=== PATIENT | female | born 1950 | race Caucasian/White ===

== ENCOUNTER 2016-10-17 07:57 | Inpatient (IN) | payer MEDICARE, BC ==
[~2016-10-17] VITALS: Ht 160 cm; Wt 120.9 kg
[2016-10-17] MEDS ORDERED: TRAM50TA PO (08:30)
[2016-10-17] MEDS ORDERED: LISI10TA3 PO (11:20)
[2016-10-17] MEDS ORDERED: AMLO10TA2 PO (11:20)
[2016-10-25] MEDS ORDERED: EXPAREL PERI-ARTICULAR INJECTION (TOTAL VOL. 100 ML) P-ARTICULR SCH ×2 (05:30)
[2016-10-25 05:42] VITALS: BP 137/67; PULSE 81; RESP 20; TEMP 98.1; O2SAT 99
[2016-10-25] MEDS ORDERED: INSULIN HUMAN REGULAR 1,000 UNITS/10 ML VIAL SQ PRN (05:45)
[2016-10-25] MEDS ORDERED: SODIUM CHLORID 0.9% 500 ML IV SCH (05:45)
[2016-10-25] MEDS ORDERED: METOPROLOL TARTRATE 25 MG TAB PO PRN (05:45)
[2016-10-25] MEDS ORDERED: CHLORHEXIDINE GLUCONATE 2 % 1 PACK (2 CLOTHS) TOP ONE (05:45)
[2016-10-25] MEDS ORDERED: LACTATED RINGER'S 1000 ML IV SCH (05:45)
[2016-10-25] MEDS: POVIDONE IODINE 5% (ANTISEPSIS KIT) 4 APPLICATIONS EACH NARE SCH (05:49)
[2016-10-25] MEDS ORDERED: MIDAZOLAM HCL 2 MG/2 ML VIAL ONE (06:05)
[2016-10-25] MEDS ORDERED: GENTAMICIN SULFATE 80 MG/2 ML VIAL ONE (06:09)
[2016-10-25] MEDS ORDERED: ceFAZolin 2 GM PREMIX 50 ML ONE (06:31)
[2016-10-25] MEDS ORDERED: ACETAMINOPHEN 1000 MG/100 ML VIAL IV ONE (06:44)
[2016-10-25] MEDS ORDERED: DEXAMETHASONE SOD PHOS 4 MG/ML VIAL ONE (06:45)
[2016-10-25] MEDS ORDERED: fentaNYL CITRATE 250 MCG/5 ML AMP ONE (06:45)
[2016-10-25] MEDS ORDERED: FAMOTIDINE 20 MG/2 ML VIAL ONE (06:45)
[2016-10-25] MEDS ORDERED: LACTATED RINGER'S 1000 ML INJ 1,000 ML IV SCH (06:54)
[2016-10-25] MEDS ORDERED: CHLORHEXIDINE GLUCONATE 4% SOLN 120 ML BTL TOP SCH (07:00)
[2016-10-25] MEDS ORDERED: TRANEXAMIC ACID INJ 0 MG in SODIUM CHLORIDE 0.9% INJ 100 ML IV SCH (07:00)
[2016-10-25] MEDS ORDERED: SODIUM CHLORIDE 0.9% FLUSH 5 ML FLUSH IVF PRN (07:00)
[2016-10-25] MEDS ORDERED: MAGNESIUM HYDROXIDE SUSP 30 ML CUP PO PRN (07:00)
[2016-10-25] MEDS ORDERED: MORPHINE SULFATE 4 MG/ML INJ IV PUSH PRN (07:00)
[2016-10-25] MEDS ORDERED: TRANEXAMIC ACID IV SCH ×2 (07:00→10:00)
[2016-10-25] MEDS ORDERED: ONDANSETRON HCL 4 MG/2 ML VIAL IVP PRN (07:00)
[2016-10-25] MEDS ORDERED: Post-op Orders (for Pharmacy) MISC XX ONE (07:00)
[2016-10-25] MEDS ORDERED: POVIDONE IODINE 7.5% SCRUB 118 ML BOTTLE TOP SCH (07:00)
[2016-10-25] MEDS: KETOROLAC TROMETHAMINE 30 MG/ML (IVP) VIAL IVP SCH ×3 (07:00→19:05)
[2016-10-25] MEDS ORDERED: SODIUM CHLORIDE 0.9% IV SCH ×2 (07:00→10:00)
[2016-10-25] MEDS ORDERED: ceFAZolin 2 GM PREMIX 50 ML IV SCH (07:00)
[2016-10-25] MEDS ORDERED: ZOLPIDEM TARTRATE 5 MG TAB PO PRN (07:00)
[2016-10-25] MEDS: SODIUM CHLORIDE 0.9% FLUSH 5 ML FLUSH IVF SCH ×2 (09:00→20:04)
[2016-10-25] MEDS ORDERED: ASPIRIN EC 81 MG TABEC PO SCH (09:00)
[2016-10-25] MEDS ORDERED: DO NOT ADM ANY ANTICOAGULANT DRUGS XX PRN (09:30)
[2016-10-25] MEDS ORDERED: *morphine SULFATE 8 MG/ML PERIprocedure ONLY ONE ×2 (09:41→09:47)
[2016-10-25] MEDS ORDERED: *HYDROmorphone PF 1 MG VIAL PERIprocedural Use ONLY ONE ×3 (09:54→10:16)
[2016-10-25] MEDS ORDERED: *hydrOXYzine 25 MG VIAL PERIprocedural Use ONLY IM ONE (10:10)
[2016-10-25] MEDS ORDERED: BUPIVACAINE LIPOSOME PF 1.3% 20 ML VIAL ONE (11:02)
--- NOTE | 2016-10-25 11:02 | RADRPT ---
EXAM DATE/TIME: 10/25/2016 09:56 [place] COMPARISON: No previous studies available for comparison. INDICATIONS: Post op left knee surgery. MEDICAL HISTORY: None. SURGICAL HISTORY: None. ENCOUNTER: Initial ACUITY: 1 day PAIN SCORE: Non-responsive. LOCATION: Left knee FINDINGS: Patient is status post left total knee arthroplasty. There is no acute fracture or dislocation. No knee joint effusion is noted. CONCLUSION: 1. Status post left total knee arthroplasty with prosthesis in good position. 2. No acute fracture or dislocation. Jose Watters MD on October 25, 2016 at 10:33 Board Certified Radiologist. This report was verified electronically.
[2016-10-25] MEDS ORDERED: BUPIVACAINE HCL PF 0.5% 30 ML VIAL NB ONE (11:05)
--- NOTE | 2016-10-25 11:52 | PD.CONS ---
[facility] By [facility] surgery Reason for Consult Medical management Primary Care Physician Isael Smiley MD Diagnoses: History of Present Illness 6 is 6-year-old female with a history of hypertension, severe left knee osteoarthritis who despite medical management continued to have worsening left knee pain affecting her daily living of activity underwent left total knee arthroplasty today 10/25/16. Postoperatively, she denies any chest pain or shortness of breath. Review of Systems Other 12 system reviewed and are negative except for the one mentioned in history of present illness Past Family Social History Allergies: Coded Allergies: No Known Allergies (Unverified , 10/25/16) Past Medical History Hypertension Left severe osteoarthritis of knee Past Surgical History Left total knee arthroplasty Reported Medications Lisinopril Norvasc Family History Noncontributory Social History Patient denies tobacco, alcohol or illicit drug intake Physical Exam Vital Signs Vital Signs Date Time Temp Pulse Resp B/P Pulse Ox O2 Delivery O2 Flow Rate FiO2 10/25/16 09:37 97.6 74 17 119/74 94 Nasal Cannula 2 10/25/16 06:00 99 Nasal Cannula 3 10/25/16 05:42 98.1 81 20 137/67 99 Physical Exam GENERAL: This is a well-nourished, well-developed patient, in no apparent distress. SKIN: No rashes, ecchymoses or lesions. Cool and dry. HEAD: Atraumatic. Normocephalic. No temporal or scalp tenderness. EYES: Pupils equal round and reactive. Extraocular motions intact. No scleral icterus. No injection or drainage. ENT: Nose without bleeding, purulent drainage or septal hematoma. Throat without erythema, tonsillar hypertrophy or exudate. Uvula midline. Airway patent. NECK: Trachea midline. No JVD or lymphadenopathy. Supple, nontender, no meningeal signs. CARDIOVASCULAR: Regular rate and rhythm without murmurs, gallops, or rubs. RESPIRATORY: Clear to auscultation. Breath sounds equal bilaterally. No wheezes , rales, or rhonchi. GASTROINTESTINAL: Abdomen soft, non-tender, nondistended. No hepato-splenomegaly , or palpable masses. No guarding. MUSCULOSKELETAL: Extremities without clubbing, cyanosis, or edema. Left knee repair-neurovascular intact NEUROLOGICAL: Awake and alert. Cranial nerves II through XII intact. Motor and sensory grossly within normal limits. Five out of 5 muscle strength in all muscle groups. Normal speech. Laboratory Laboratory Tests Test 10/25/16 05:47 Blood Type A POSITIVE Antibody Screen NEGATIVE Blood Bank Comment Imaging Last Impressions Knee X-Ray 10/25/16 0000 Signed Impressions: Service Date/Time: Tuesday, October 25, 2016 09:56 - CONCLUSION: 1. Status post left total knee arthroplasty with prosthesis in good position. 2. No acute fracture or dislocation. Jose Watters MD Assessment and Plan Problem List: (1) Primary osteoarthritis of left knee ICD Code: M17.12 Status: Acute Assessment and Plan 66-year-old female with 1-Primary osteoarthritis left knee: Status post left total knee arthroplasty, and management per orthopedic surgery. Continue current postop care. Aspirin 81 mg by mouth twice a day for DVT prophylaxis. PT consult to treat and eval. 2-Hypertension: Currently on Norvasc 10 mg and lisinopril 10 mg daily, Vasotec when necessary. BMP in a.m. 3-DVT prophylaxis: Aspirin 81 mg by mouth twice a day Thank you for this consultation Code Status Full code Discussed Condition With Patient Merritt Lai MD Oct 25, 2016 11:52
[2016-10-25] MEDS ORDERED: RESP: ALBUTEROL 2.5 MG/IPRATROPIUM 0.5 MG NEB (PRN) NEB (12:00)
[2016-10-25 12:52] VITALS: BP 124/64; PULSE 68; RESP 17; TEMP 95.9; O2SAT 100
[2016-10-25] MEDS ORDERED: ePHEDrine/NS 25 MG/5 ML SYR IV ONE (14:14)
[2016-10-25] MEDS ORDERED: PROPOFOL 200 MG/20 ML AMP IV ONE (14:14)
[2016-10-25] MEDS ORDERED: LACTATED RINGER'S 1000 ML INJ 1,000 ML IV ONE (14:14)
[2016-10-25] MEDS ORDERED: PHENYLEPH/NS 1000 MCG/10 ML SYR IV ONE (14:14)
[2016-10-25] MEDS ORDERED: ONDANSETRON HCL 4 MG/2 ML VIAL IV PUSH ONE (14:14)
[2016-10-25 15:53] VITALS: BP 125/62; PULSE 70; RESP 19; TEMP 95.7; O2SAT 100
[2016-10-25] MEDS: ACETAMINOPHEN/HYDROcodone 325 MG/7.5 MG TAB PO PRN ×2 (16:07→20:46)
[2016-10-25 17:02] VITALS: O2SAT 98
[2016-10-25 19:30] VITALS: O2SAT 99
[2016-10-25 20:10] VITALS: BP 123/58; PULSE 76; RESP 17; TEMP 97.3; O2SAT 100
[2016-10-26] VITALS (7 sets, daily range): BP systolic 116–140; BP diastolic 57–72; PULSE 76–86; RESP 16–18; TEMP 96.6–99.1; O2SAT 94–100
[2016-10-26] MEDS: KETOROLAC TROMETHAMINE 30 MG/ML (IVP) VIAL IVP SCH ×5 (01:48→23:04)
[2016-10-26] MEDS: POVIDONE IODINE 5% (ANTISEPSIS KIT) 4 APPLICATIONS EACH NARE SCH (05:45)
[2016-10-26 06:25] LABS: HEMATOCRIT 31.9 % (35.0-46.0); REVIEW FLAG FINAL
[2016-10-26 06:48] LABS: BICARBONATE 24.6 MEQ/L (21.0-32.0); POTASSIUM 3.9 MEQ/L (3.5-5.1)
--- NOTE | 2016-10-26 07:17 | PD.ORT.PN ---
Subjective Post Op Day #: 1 Subjective Remarks After the second block, she did well. She has been OOB walking to the bathroom several times. Range of Motion -20 to 80 degrees. Distance Walked 10 feet. Objective Vitals Vital Signs Date Time Temp Pulse Resp B/P Pulse Ox O2 Delivery O2 Flow Rate FiO2 10/26/16 00:15 96.6 76 17 140/68 100 10/25/16 21:46 18 10/25/16 20:10 97.3 76 17 123/58 100 10/25/16 19:30 99 Nasal Cannula 3.00 10/25/16 17:02 98 Nasal Cannula 2.00 10/25/16 15:53 95.7 70 19 125/62 100 10/25/16 14:24 18 10/25/16 12:52 95.9 68 17 124/64 100 10/25/16 12:00 97.6 74 12 124/63 96 Nasal Cannula 2 10/25/16 11:45 70 12 126/68 97 Nasal Cannula 2 10/25/16 11:30 73 12 122/67 96 Nasal Cannula 2 10/25/16 11:15 66 12 125/69 95 Nasal Cannula 2 10/25/16 11:00 66 12 137/69 93 Nasal Cannula 2 10/25/16 10:45 88 15 151/77 98 Nasal Cannula 2 10/25/16 10:30 77 20 161/91 99 Nasal Cannula 2 10/25/16 10:15 68 22 145/84 99 Nasal Cannula 2 10/25/16 10:00 77 20 138/78 98 Nasal Cannula 2 10/25/16 09:45 88 20 133/69 97 Nasal Cannula 2 10/25/16 09:37 97.6 74 17 119/74 94 Nasal Cannula 2 I/O 10/25/16 10/25/16 10/25/16 10/26/16 10/26/16 10/26/16 07:00 15:00 23:00 07:00 15:00 23:00 Intake Total 1840 ml 720 ml Output Total 380 ml 150 ml 130 ml Balance 1460 ml 570 ml -130 ml Intake Oral 240 ml 720 ml IV Total 100 ml Other 1500 ml Output Drainage Total 130 ml 150 ml 130 ml Estimated Blood Loss 250 ml # Voids 1 2 # Bowel Movements 0 0 Result Diagram: 10/26/16 0546 10/26/16 0546 Imaging Last 72 hours Impressions Knee X-Ray 10/25/16 0000 Signed Impressions: Service Date/Time: Tuesday, October 25, 2016 09:56 - CONCLUSION: 1. Status post left total knee arthroplasty with prosthesis in good position. 2. No acute fracture or dislocation. Jose Watters MD Objective Remarks She is resting comfortably, supine in bed in the CPM. The neurovascular status is intact. The dressing is dry and intact. Assessment & Plan Ortho Post Op Day #: 1 Problem List: (1) Primary osteoarthritis of left knee Plan: Continue postop care and PT. Assessment and Plan Condition: Good. Orthopaedically stable. DVT prophylaxis: TEDs, sequentials, ASA. Discharge plans: Home with [facility]. Has appointment. Rx: [place] 7.5/325 Yady Ruby MD (Charles) Oct 26, 2016 07:17
[2016-10-26] MEDS ORDERED: ASPI81TA11 PO (08:22)
[2016-10-26] MEDS ORDERED: HYDR-3580 PO (08:22)
--- NOTE | 2016-10-26 08:29 | HHI.FF ---
Face to Face Verification Diagnosis: (1) Status post total left knee replacement Physical Therapy Gait training Knee: Total knee, Protocol: Left, Gait training, Full weight bearing Left LE Weight Bearing: WB as tolerated Left LE Range of Motion: Active ROM (AROM, AAROM, PROM, PRE. ROM goal is 0 to 135 degrees.) Nursing Nursing: Dressing changes Dressing Changes: Daily dressing change, Coverderm/Primapore Additional Instructions Remove steristrips on postop day 14. I have seen patient Michelle Muñoz on 10/26/16. My clinical findings support the need for the requested home health care services because: Ltd mobility - disease progression Limited ability to care for self High risk of falls I certify that my clinical findings support that this patient is homebound because: Post-op weakness Unsteady gait/balance Unsafe to leave home unassisted Yady Ruby MD (Charles) Oct 26, 2016 08:29
[2016-10-26] MEDS: ASPIRIN EC 81 MG TABEC PO SCH ×2 (09:04→19:45)
[2016-10-26] MEDS: LISINOPRIL 10 MG TAB PO SCH (09:04)
[2016-10-26] MEDS: ACETAMINOPHEN/HYDROcodone 325 MG/7.5 MG TAB PO PRN ×3 (09:05→18:53)
--- NOTE | 2016-10-26 09:06 | MP ---
cc: Cristobal KAYE. DATE OF SURGERY 10/25/2016 PREOPERATIVE DIAGNOSIS Primary osteoarthritis left knee POSTOPERATIVE DIAGNOSIS Primary osteoarthritis left knee OPERATION PERFORMED Left total knee arthroplasty with Beeler Triathlon prosthesis (uncemented). SURGEON Ha Kaye MD [employer] Will Alanis CSFA ANESTHESIA Spinal with adductor canal block and local. INDICATIONS AT FINDINGS This 66-year-old woman has several months of the left knee pain that has progressed to the point that she can barely walk around the block because of the pain. She has had pain on motion. She has occasional locking. She has difficulty standing from a seated position. She has difficulty walking more than around the home. She has not responded to anti-inflammatory agents, analgesics, activity modification, exercises, ambulatory aids, or physical therapy. Physical findings showed some mild medial laxity with crepitation on range of motion throughout the entire joint. Imaging studies including x-rays and MRI showed significant degenerative change with loss of articular cartilage to the subchondral bone with subchondral sclerosis in the patellofemoral joint especially but also in the medial compartment and to a lesser extent the lateral compartment. There was also significant meniscal pathology. Operative findings showed grade 4 change in the patellofemoral joint, grade 3-4 change in the medial compartment and grade 3 change in the lateral compartment. There are osteophytes and subchondral sclerosis. PROSTHESIS USED Beeler Triathlon prosthesis with the femur being a Triathlon cruciate-retaining femoral component size 5 left uncemented, the tibia baseplate being a tritanium baseplate with a size 5 and the spacer being 9-mm, size 5 cruciate-retaining of X3 polyethylene. The patella was a titanium-backed asymmetric patella size 35-mm. PROCEDURE The patient had an adductor canal block carried out preoperatively. She was then brought to the clean-air operating suite where spinal anesthetic was administered. She was placed in a supine position on the operating table with a bolster under the left hip. A pneumatic tourniquet was applied to the left thigh. The limb was then prepped with alcohol, Hibiclens and Chloraprep and draped in the usual manner with the knee draped free. An appropriate time-out procedure was carried out. Local anesthesia was administered in the incision site prior to making it. The incision was then made from three fingerbreadths above the superior medial pole of the patella down to the tibial tubercle on the medial side. The incision was deepened through the subcutaneous tissues to the retinacular structures which were exposed medially and laterally. A medial retinacular incision was then made from the superior medial pole of patella down to the tibial tubercle up to the quadriceps tendon splitting it longitudinally in the medial one-third. The patella was reflected. The infrapatellar fat pad was debulked. Medial and lateral dissection was carried out. Medial and lateral meniscus meniscectomies were initiated. The anterior cruciate ligament was excised. The posterior surface of the patella was then excised using the oscillating saw taking care to prevent injury to tendinous structures. A patella protector was applied. The patella was dropped into the lateral gutter. A suprapatellar plica was excised. Whitesides line was marked on the distal femur. Fenestrations were made in the distal femur and proximal tibia with the appropriate drill for intramedullary referencing guides. The distal femoral cutting guide and jig were assembled for a 5-degree, 8-mm cut. The cutting block was stabilized with pins. The jig was removed. The distal femoral cut was completed with the oscillating saw. The sizing guide was positioned along Whitesides line. This was stabilized with pins. The size was determined to be size and size 5. The four-in-one cutting block was then positioned in place. Anterior and posterior cuts were made followed by posterior and anterior chamfer cuts. Osteophytes were trimmed. Medial and lateral meniscectomies were completed. The tibial preparation was initiated with the intramedullary guide. The guide was stabilized for rotation. The depth of cut was verified with the stylus. The spacer block was used to adjust this. With the tibial guide stabilized with pins, the proximal tibial cut was completed with the oscillating saw. The spacer block was inserted. Following this, local anesthesia was administered throughout the knee with Exparel. The osteophytes were trimmed from the posterior aspect of the femur. With the trial implants in place, it appeared to need another 2 mm of resection. The cutting block was then repositioned in place and an additional 2-mm were resected. The thickness of the prosthesis appeared to be appropriate. With the trial prosthesis in for the tibia and the femur, the patella drill holes were made. Patella trial was placed. A lateral retinacular release was done to achieve better stability of the patella. After pinning the tibia into proper position, the knee was taken through a range of motion which was easily 0 degrees extension to 135 degrees of flexion. The femoral drill holes were made. The patella trial and femoral trial were removed. The tibial spacer was removed. The tibial punch was impacted through its guide. The tibial baseplate was removed. The tibial drill guide was then used to make the drill holes. The cut ends of bone were then cleaned with pulse lavage. The tibial component was then impacted into place and seated appropriately. The 9-mm spacer was then inserted and impacted into place. The femoral component was then impacted into place after cleaning the debris from the end of the femur. The same was done with the patella using the patella vice. After the implants were in, the remainder of the Exparel was injected throughout the knee. Wound closure then commenced after placement of drains, exiting out the superolateral aspect of the suprapatellar pouch. The fascial and retinacular structures were closed with 0 Vicryl interrupted [id number] sutures. The subcutaneous tissues were closed with 2-0 Vicryl interrupted simple sutures with buried knots. The skin was closed with continuous subcuticular closure of 4-0 Monocryl. The wounds were then dressed with Steri-Strips, followed by dry dressing, sterile Sof-Rol, cooling pad, further sterile Sof-Rol and Anselmo bandage from the base the toe to the midthigh. The patient was transferred from the operating room to the recovery room in satisfactory condition having tolerated the procedure well. COUNTS Correct. SPECIMENS None. ESTIMATED BLOOD LOSS 250 mL. MD LORI Rey/GLENNA /9:37 AM /8:43 AM
[2016-10-26] MEDS: SODIUM CHLORIDE 0.9% FLUSH 5 ML FLUSH IVF SCH ×2 (09:08→19:45)
--- NOTE | 2016-10-26 11:16 | HHI.PR ---
Subjective History of Present Illness i am ok knee pain is in control worked w PT No N/V good appetite Moved bowel today no cp or SOB ] In good spirits offers no other c/o Vitals/Results Intake & Output 10/25/16 10/25/16 10/26/16 15:00 23:00 07:00 Intake Total 1840 ml 720 ml Output Total 380 ml 150 ml 130 ml Balance 1460 ml 570 ml -130 ml Intake Oral 240 ml 720 ml IV Total 100 ml Other 1500 ml Output Drainage Total 130 ml 150 ml 130 ml Estimated Blood Loss 250 ml # Voids 1 2 # Bowel Movements 0 0 Vital Signs Vital Signs Date Time Temp Pulse Resp B/P Pulse Ox O2 Delivery O2 Flow Rate FiO2 10/26/16 09:30 97 21 10/26/16 08:00 98.4 86 18 131/72 96 10/26/16 04:25 97.9 84 16 131/63 99 10/26/16 00:15 96.6 76 17 140/68 100 10/25/16 21:46 18 10/25/16 20:10 97.3 76 17 123/58 100 10/25/16 19:30 99 Nasal Cannula 3.00 10/25/16 17:02 98 Nasal Cannula 2.00 10/25/16 15:53 95.7 70 19 125/62 100 10/25/16 14:24 18 10/25/16 12:52 95.9 68 17 124/64 100 10/25/16 12:00 97.6 74 12 124/63 96 Nasal Cannula 2 10/25/16 11:45 70 12 126/68 97 Nasal Cannula 2 10/25/16 11:30 73 12 122/67 96 Nasal Cannula 2 CBC/BMP: 10/26/16 0546 10/26/16 0546 Lab Results Laboratory Tests Test 10/26/16 05:46 Hemoglobin 11.0 GM/DL Hematocrit 31.9 % Sodium Level 140 MEQ/L Potassium Level 3.9 MEQ/L Chloride Level 106 MEQ/L Carbon Dioxide Level 24.6 MEQ/L Anion Gap 9 MEQ/L Blood Urea Nitrogen 8 MG/DL Creatinine 0.68 MG/DL Estimat Glomerular Filtration 86 ML/MIN Rate Random Glucose 102 MG/DL Calcium Level 8.9 MG/DL Physical Exam General General Appearance: No Acute Distress, Comfortable Eyes Eye Exam: Pupils Equal, Sclera White Throat Throat Exam: Oral Mucosa [place] & Moist Neck Neck Exam: Neck Supple, Trachea Midline Pulmonary Resp Exam: Clear Bilaterally, Breath Sounds Equal Cardiology CV Exam: Regular, Normal Sinus Rhythm Gastrointestinal/Abdomen GI Exam: Soft, Non-Tender, Bowel Sounds Present Musculoskeletal MS Remarks left Knee dressing intact Integumentary Skin Exam: Warm, Dry Extremeties Extremities Exam: No Edema, Pedal Pulses Palpable Neurologic Neuro Exam: Alert, Awake, Oriented, Speech Clear, Moving All Extremities Psychiatric Psych Exam: Appropriate Responses Assessment/Plan Problem List: (1) Primary osteoarthritis of left knee Assessment/Plan OA s/p L TKR HTN Obesity PLAN Post op care per ortho s/p Abx prophylaxis analgesic wound care DVT prophylaxis per ortho daily PT CPM BP control , CCB/JEVON-I pepcid stool softener/prn laxative ss for d/c planning will f/u Joe Bustos MD Oct 26, 2016 11:16
[2016-10-26] MEDS: DOCUSATE SODIUM 100 MG CAP PO SCH (19:45)
[2016-10-27 00:21] VITALS: BP 116/56; PULSE 70; RESP 17; TEMP 97.8; O2SAT 95
[2016-10-27 04:19] VITALS: BP 146/65; PULSE 86; RESP 17; TEMP 99.8; O2SAT 97
[2016-10-27] MEDS: ACETAMINOPHEN/HYDROcodone 325 MG/7.5 MG TAB PO PRN ×2 (05:32→09:34)
[2016-10-27 06:05] LABS: HEMATOCRIT 30.1 % (35.0-46.0); REVIEW FLAG FINAL
--- NOTE | 2016-10-27 06:36 | PD.ORT.PN ---
Subjective Post Op Day #: 2 Subjective Remarks She had a bad night, with pain. She did well with PT yesterday. She would like to go home today. Range of Motion -10 to 96 degrees. Distance Walked 150 feet. Objective Vitals Vital Signs Date Time Temp Pulse Resp B/P Pulse Ox O2 Delivery O2 Flow Rate FiO2 10/27/16 04:19 99.8 86 17 146/65 97 10/27/16 00:21 97.8 70 17 116/56 95 10/26/16 20:15 99.1 80 17 129/59 94 10/26/16 16:00 98.7 82 18 116/59 97 10/26/16 11:54 98.6 81 18 120/57 96 10/26/16 09:30 97 21 10/26/16 08:00 98.4 86 18 131/72 96 I/O 10/26/16 10/26/16 10/26/16 10/27/16 10/27/16 10/27/16 07:00 15:00 23:00 07:00 15:00 23:00 Intake Total 1700 ml 480 ml 240 ml Output Total 130 ml 120 ml 30 ml 10 ml Balance -130 ml 1580 ml 450 ml 230 ml Intake Oral 1700 ml 480 ml 240 ml Output Drainage Total 130 ml 120 ml 30 ml 10 ml # Voids 9 2 2 # Bowel Movements 1 0 Result Diagram: 10/27/16 0546 10/26/16 0546 Imaging Last 72 hours Impressions Knee X-Ray 10/25/16 0000 Signed Impressions: Service Date/Time: Tuesday, October 25, 2016 09:56 - CONCLUSION: 1. Status post left total knee arthroplasty with prosthesis in good position. 2. No acute fracture or dislocation. Jose Watters MD Objective Remarks She is resting comfortably, supine in bed in the CPM. The neurovascular status is intact. The original dressing is dry and intact. Assessment & Plan Ortho Post Op Day #: 2 Problem List: (1) Primary osteoarthritis of left knee Plan: Continue postop care and PT. Assessment and Plan Condition: Good. Orthopaedically stable. DVT prophylaxis: TEDs, sequentials, ASA. Discharge plans: Home with [facility]. Has appointment. Rx: [place] 7.5/325 Yady Ruby MD (Charles) Oct 27, 2016 06:36
[2016-10-27 08:00] VITALS: BP 139/65; PULSE 87; RESP 18; TEMP 98.4; O2SAT 94
[2016-10-27] MEDS ORDERED: FAMOTIDINE 20 MG TAB PO SCH (09:00)
[2016-10-27] MEDS: SODIUM CHLORIDE 0.9% FLUSH 5 ML FLUSH IVF SCH (09:00)
[2016-10-27] MEDS: DOCUSATE SODIUM 100 MG CAP PO SCH (09:33)
[2016-10-27] MEDS: ASPIRIN EC 81 MG TABEC PO SCH (09:34)
[2016-10-27] MEDS: LISINOPRIL 10 MG TAB PO SCH (09:34)
--- NOTE | 2016-10-27 10:31 | HHI.PR ---
Subjective Subjective Remarks ambulating in hallway with walker had BM no cp no sob no fever going home today Review of Systems Constitutional Constitutional Remarks 12 point ROS completed, negative except as noted above Vitals/Results Intake & Output 10/26/16 10/26/16 10/27/16 15:00 23:00 07:00 Intake Total 1700 ml 480 ml 240 ml Output Total 120 ml 30 ml 10 ml Balance 1580 ml 450 ml 230 ml Intake Oral 1700 ml 480 ml 240 ml Output Drainage Total 120 ml 30 ml 10 ml # Voids 9 2 2 # Bowel Movements 1 0 Vital Signs Vital Signs Date Time Temp Pulse Resp B/P Pulse Ox O2 Delivery O2 Flow Rate FiO2 10/27/16 08:00 98.4 87 18 139/65 94 10/27/16 04:19 99.8 86 17 146/65 97 10/27/16 00:21 97.8 70 17 116/56 95 10/26/16 20:15 99.1 80 17 129/59 94 10/26/16 16:00 98.7 82 18 116/59 97 10/26/16 11:54 98.6 81 18 120/57 96 CBC/BMP: 10/27/16 0546 10/26/16 0546 Lab Results Laboratory Tests Test 10/27/16 05:46 Hemoglobin 10.2 GM/DL Hematocrit 30.1 % Physical Exam General General Appearance: Well Developed, No Acute Distress, Comfortable, Obese Eyes Eye Exam: Pupils Equal, Pupils Reactive, Sclera White Ears & Nose Ears & Nose Exam: Nasal Mucosa Riva Throat Throat Exam: Oral Mucosa Riva & Moist Neck Neck Exam: Neck Supple, Trachea Midline Pulmonary Resp Exam: Clear Bilaterally, Breath Sounds Equal Cardiology CV Exam: Regular, Normal Sinus Rhythm Gastrointestinal/Abdomen GI Exam: Soft, Non-Tender, Bowel Sounds Present, Non-Distended Musculoskeletal MS Exam: Joints Intact MS Remarks left knee dressing D/I Integumentary Skin Exam: Warm, Dry Extremeties Extremities Exam: Pedal Pulses Palpable, Trace Edema Neurologic Neuro Exam: Alert, Awake, Oriented, Speech Clear, Moving All Extremities Psychiatric Psych Exam: Appropriate Responses VTE Prophylaxis VTE Prophylaxis Device: SCDs Assessment/Plan Problem List: (1) Primary osteoarthritis of left knee Assessment/Plan OA s/p L TKR HTN Obesity PLAN Post op care per ortho s/p Abx prophylaxis analgesic wound care DVT prophylaxis per ortho daily PT BP control , CCB/JEVON-I pepcid stool softener/prn laxative stable for dc dc per ortho D/W RN D/W Dr. Berumen D/W pt This patient was seen by myself and Dr. Bustos, this note is written on his behalf. Katty Mccoy Oct 27, 2016 10:31
[2016-10-27 11:30] VITALS: BP 136/62; PULSE 89; RESP 18; TEMP 97.3; O2SAT 97
== END 2016-10-27 11:56 | disposition home health service (06) | DRG 470 ==
LOC: HSDI 10-25 05:10 → N06B 10-25 12:42
PROVIDERS: ADMIT Orthopaedic Surgery; ATTEND Orthopaedic Surgery
PROC: 3E0T3CZ (ICD-10-PCS; 2016-10-25)
PROC: 0SRD0JA Replacement of Left Knee Joint with Synthetic Substitute, Uncemented, Open Approach (ICD-10-PCS; principal; 2016-10-25 06:47)
DX: M17.12 Unilateral primary osteoarthritis, left knee (principal); Z68.42 Body mass index [BMI] 45.0-49.9, adult; I10 Essential (primary) hypertension; E66.9 Obesity, unspecified; Z79.899 Other long term (current) drug therapy
CPT/HCPCS: 73560; 80048; 85014; 85018; 86850; 86900; 86901; 94150; C1776; C9290; J0131; J0690; J1100; J1170; J1580; J1885; J2250; J2270; J2370; J2405; J3010; J3410; J7120; L1830

== ENCOUNTER → 2016-10-17 | Outpatient (CLI) | payer MEDICARE, BC ==
[~2016-10-17] MED LIST: AMLO10TA2 PO; ASPI81TA11 PO; HYDR-3580 PO; LISI10TA3 PO; TRAM50TA PO
[2016-10-17 09:49] LABS: BLOOD, URINE NEG (NEG); COMMENT (UR) CATH-CULT NOT IND; CULTURE IF INDICATED CATH CULTURE NOT IND; GLUCOSE,URINE NEG (NEG); HYALINE CAST, URINE 7 /lpf (RARE); KETONE, URINE NEG (NEG); MUCUS URINE FEW /lpf (OCC); NITRITE,URINE NEG (NEG); PH, URINE 6.5 (5.0-8.5); SQUAMOUS EPITHELIAL CELL URINE 3 /hpf (0-5); URINE COLOR YELLOW (YELLW/STRAW)
[2016-10-17 10:03] LABS: MEAN CORPUSCULAR HEMOGLOBIN 33.1 PG (27.0-34.0); MEAN CORPUSCULAR HGB CONC 34.4 % (32.0-36.0); PLATELET COUNT 247 TH/MM3 (150-450); RED BLOOD COUNT 4.06 MIL/MM3 (4.00-5.30); RED CELL DISTRIBUTION WIDTH 13.3 % (11.6-17.2); REVIEW FLAG FINAL; WHITE BLOOD COUNT 7.7 TH/MM3 (4.0-11.0)
[2016-10-17 10:22] LABS: APTT (PATIENT) 27.3 SEC (24.3-30.1); PROTHROMBIN TIME - PATIENT 11.2 SEC (9.8-11.6)
[2016-10-17 10:31] LABS: BICARBONATE 27.5 MEQ/L (21.0-32.0); POTASSIUM 3.9 MEQ/L (3.5-5.1)
== END ==
LOC: CPRE 07:53
PROVIDERS: ATTEND Orthopaedic Surgery
DX: M17.12 Unilateral primary osteoarthritis, left knee (principal); M79.609 Pain in unspecified limb; I10 Essential (primary) hypertension
CPT/HCPCS: 36415; 80048; 81001; 85027; 85610; 85730

== ENCOUNTER 2018-05-29 05:14 | Inpatient (IN) ==
[2018-05-29] MEDS ORDERED: Sodium Chlor 0.9% Inj 500 ML IV.CONT ONE (05:45)
[2018-05-29] MEDS ORDERED: Chlorhexidine Gluconate 2% 1 Pack (2 Cloths) TOPICAL ONE (05:45)
[2018-05-29] MEDS ORDERED: Metoprolol Tartrate 25 MG Tablet PO ONE (05:45)
[2018-05-29] MEDS ORDERED: SODIUM CHLOR 0.9% IV.SIG SCH ×2 (06:00→10:00)
[2018-05-29] MEDS ORDERED: Sodium Chlor 0.9% Inj 80 ML, Bupivacaine Liposo PF 1.3% Inj 20 ML P-ARTICULR SCH ×2 (06:00)
[2018-05-29] MEDS ORDERED: Chlorhexidine 4% Topical 120 APPLIC/120 ML Bottle TOPICAL SCH (06:00)
[2018-05-29] MEDS ORDERED: TRANEXAMIC ACID IV.SIG SCH ×2 (06:00→10:00)
[2018-05-29] MEDS ORDERED: Bupivacaine Liposomal PF 1.3% Inj 20 ML Vial ONE (06:17)
[2018-05-29] MEDS ORDERED: Sodium Chlor 0.9% Inj 50 ML ONE (06:20)
[2018-05-29] MEDS ORDERED: Famotidine PF Inj 20 MG/2 ML Vial ONE (06:21)
[2018-05-29] MEDS ORDERED: fentaNYL Citrate Inj 100 MCG/2 ML Ampul ONE ×3 (06:21→09:39)
[2018-05-29] MEDS ORDERED: Bupivacaine/Dextrose 0.75% Inj 2 ML Ampul ONE ×2 (06:21→06:49)
[2018-05-29] MEDS ORDERED: Propofol Inj 500 MG/50 ML Vial ONE (06:21)
[2018-05-29] MEDS ORDERED: Dexmedetomidine Inj 200 MCG/2 ML Vial ONE (06:21)
[2018-05-29] MEDS ORDERED: Phenylephrine/NS 1000 MCG/10ML Syringe IV.PUSH ONE (06:42)
[2018-05-29] MEDS ORDERED: Post-op Orders (for Pharmacy) OTHER STA (06:44)
[2018-05-29] MEDS ORDERED: Morphine Inj 4 MG/ML Vial IV.PUSH PRN (06:44)
[2018-05-29] MEDS ORDERED: Aluminum/Magnesium/Simethacone Susp 30 ML UDC PO PRN (06:44)
[2018-05-29] MEDS ORDERED: Tranexamic Acid Inj 0 MG in Sodium Chlor 0.9% Inj 100 ML IV.SIG ONE (06:44)
[2018-05-29] MEDS ORDERED: Acetaminophen 325 MG Tablet PO PRN (06:44)
[2018-05-29] MEDS ORDERED: Bisacodyl 10 MG Supp RECTAL PRN (06:44)
--- NOTE | 2018-05-29 06:50 | P.DCO ---
- Physical Therapy Physical Therapy: Gait training Knee: Total knee, Protocol: Right, Gait training, Full weight bearing Right Lower Extremity Weight Bearing: Weight bearing as tolerated Right Lower Extremity Range of Motion: Active ROM (AROM, AAROM, PROM. ROM goal is 0 degrees extension to 130 degrees of flexion.) - Nursing Nursing: Dressing changes (Begin on postop day 8.) Dressing changes: Daily dressing change, Coverderm/Primapore Additional instructions: Do not remove Dermabond Prineo (the tape on the wound). Begin dressing changes on postop day 8. - Certification Need for Home Health services: I have seen patient Michelle Muñoz on 05/29/18. My clinical findings support the need for the requested home health care services because: Need for Home Health Services: Limited ability to care for self, High risk of falls Homebound Certification: I certify that my clinical findings support that this patient is homebound because: Homebound Certification: Post-op weakness, Unsteady gait/balance, Unsafe to leave home unassisted
[2018-05-29] MEDS: ceFAZolin 2 GM Premix Inj 2 GM/50 ML PIGGYBACK IV.SIG SCH ×2 (06:51→19:19)
--- NOTE | 2018-05-29 09:18 | P.OP ---
- Preoperative Diagnosis (1) Primary osteoarthritis of right knee - Postoperative Diagnosis (1) Primary osteoarthritis of right knee Date of procedure: 05/29/18 Procedure: Right total knee arthroplasty using [place] Triathlon prosthesis (uncemented) Anesthesia: GETA, regional (Adductor canal block), local (Exparel), spinal Surgeon: Carroll Ruby MD Estimated blood loss (mL): 150 Tourniquet time (min): 0 Pathology: none sent Operation and Findings: Indications and Findings: This 67-year-old woman has had a 3 right knee pain for several months that has been progressively worsening over the past few months. She has limited ambulation tolerance to about 30 minutes. She has used analgesics, anti-inflammatory agents, activity modification, exercise and ambulatory aids without benefit. She has pain when standing from a seated position and vice versa. She has pain with stairs. Physical findings showed genu varum with crepitation on motion in the medial and patellofemoral compartments especially. X-rays show loss of articular cartilage to exposed subchondral bone in the medial compartment especially with medial, lateral and patellofemoral compartment meant osteophytes. Operative findings: There was loss of articular cartilage to expose subchondral bone with subchondral sclerosis in the medial compartment. There was also loss of articular cartilage in the patellofemoral compartment particularly in the apex. There are tricompartmental osteophytes. The prosthesis used was a [place] Triathlon prosthesis. The femur was a size 5 cruciate retaining uncemented. The tibial baseplate was a size 5 Tritanium with a 9 mm cruciate retaining X3 polyethylene spacer. The patella was a size 35 mm asymmetric Tritanium backed. The patient was brought to the clean-air operating suite after administration of a regional anesthetic by adductor canal block. A spinal anesthetic was administered. The position was supine with a small bolster under the hip on the operative side. A pneumatic tourniquet was applied to the upper thigh. The lower extremity was prepped with alcohol, Hibiclens and ChloraPrep and draped in the usual manner with the knee draped free. An appropriate timeout procedure was carried out. An incision was made from about 3 fingerbreadths above the superior medial pole of patella down the tibial tubercle on the medial side. The incision was deepened through the subcutaneous tissue to the retinacular structures which were exposed medially and laterally. A medial retinacular incision was made from the superior medial pole of patella down the tibial tubercle and up into the quadriceps tendon, splitting it longitudinally in the medial one third. The patella was reflected. The infrapatellar fat pad was debulked. The anterior cruciate ligament was excised. Medial and lateral meniscectomies were initiated. Fenestrations were made in the distal femur and proximal tibia for intramedullary referencing guides. The distal femoral cutting guide and jig were assembled for a 5, 8 mm cut. When this was fit into position,the cutting block was stabilized with pins. The jig was removed. The distal femoral cut was completed with the oscillating saw. The sizing guide was positioned in place along Whitesides line and the epicondylar axis and stabilized with pins. The femoral size was determined as noted above. The 4-in-1 cutting block was positioned in place. Anterior and posterior cuts were made followed by posterior and anterior chamfer cuts taking care to prevent injury to ligamentous structures. Osteophytes were trimmed from the distal femur. A bone plug was placed into the fenestration of the distal femur. The proximal tibia was exposed. The medial and lateral meniscectomies were completed. The proximal tibial cutting guide was positioned in place and stabilized with a pin for rotation. The depth of cut was verified with a stylus off the high side. The cutting block was stabilized with pins. The jig was removed. The depth of cut was verified and adjusted appropriately with the use of the spacer block. The proximal tibial cut was made with the oscillating saw taking care to prevent injury to neurovascular and ligamentous structures. Proximal tibial bone was removed. Local anesthetic was administered with Exparel in the posterior capsule. The tibial baseplate trial was positioned in place. After verifying the appropriate size, the base plate trial was positioned in place along with its spacer. The femoral component was impacted into place. The alignment was checked. The tibial baseplate was pinned in place on the tibia. Attention was directed to the patella. The patella drill guide was positioned in place for the appropriate sized patella. Patellar drilling was then carried out. The trial patella was positioned in place. The knee was taken through a range of motion which was easily 0 extension to 135 degrees of flexion. The patella trial was removed. The femoral drill holes were made. The femoral trials were removed. The tibial spacer was removed. A bone plug was placed into the proximal tibia. The tibial punch was impacted through the proximal tibial punch guide. This was all removed followed by placement of the tibial drill guide. The tibial drill holes were made. The guide was removed. The cut ends of bone were cleaned with pulse lavage. The tibial baseplate was impacted into place and seated appropriately. The spacer was inserted. The the femoral component was impacted into place and seated appropriately. The patella component was seated with the patellar vice and tightened appropriately. The knee was taken through a range of motion which was comparable to the previous range of motion with excellent stability in flexion and extension and appropriate patellofemoral tracking. The remainder of the Exparel was injected throughout the knee as a local anesthetic. Drains were brought out the superior lateral aspect of the suprapatellar pouch. Wound closure commenced using 0 Vicryl interrupted [id number] sutures for the capsular and fascial structures, 2-0 Vicryl interrupted simple sutures with buried knots for the subcutaneous tissues and 4-0 Monocryl, continuous subcuticular closure for the skin. The wound was dressed with Dermabond Prineo followed by a silver impregnated dressing. Sterile soft roll with a cooling pad and Anselmo bandage from the base of the toes to mid thigh were applied. Patient was transferred from the operating room to the recovery room in satisfactory condition having tolerated procedure well. Counts were correct. Specimens: None. Estimated blood loss: 150 mL
[2018-05-29] MEDS ORDERED: *morphine SULFATE 4 MG/ML PERIprocedure ONLY ONE ×2 (09:32→09:59)
[2018-05-29] MEDS ORDERED: Ketorolac Inj 30 MG/ML (IVP) Vial ONE (09:54)
[2018-05-29] MEDS ORDERED: *HYDROmorphone PF Inj 1 MG/ML Ampul PERIprocedural Use ONLY ONE (10:09)
--- NOTE | 2018-05-29 10:26 | XR ---
EXAM DATE: 05/29/2018 6:43 AM EDT AGE/SEX: 67 years / Female INDICATIONS: Post op right total knee replacement. CLINICAL DATA: This is the patient's initial encounter. Patient reports that signs and symptoms have been present for 1 day and indicates a pain score of 5/10. MEDICAL/SURGICAL HISTORY: None. None. COMPARISON: No prior exams available for comparison. FINDINGS: Total knee arthroplasty is in place. The femoral, tibial, and patellar components appear intact. Th ere are no signs of loosening or fracture. CONCLUSION: Intact total knee arthroplasty for technique. Electronically signed by: Pranay Stuart MD 05/29/2018 10:25 AM EDT
[2018-05-29] MEDS ORDERED: HYDROmorphone PF Inj 1 MG/ML Ampul ONE (10:27)
--- NOTE | 2018-05-29 12:14 | P.CON ---
History of Present Illness Consult date: 05/29/18 Requesting Physician: Carroll Ruby Reason for Consult: Medical Management. Primary Care Provider: Bryan Smiley MD Chief Complaint: Status post Knee arthroplasty. History of Present Illness: This is a pleasant 67 y/o Female with Hypertension,Severe Right knee OA who despite medical management continued to have worsening right knee pain affecting her daily living of activity underwent right total knee arthroplasty today 05/29/18. Stable her only complaint is knee pain post surgery. Seen in PACU. Review of Systems All other systems reviewed negative except as stated in HPI PMFSH - History History Provided By: Patient - Medical History Medical History: Medical History (Last Reviewed 05/29/18 @ 05:49 by Alicia Tan) Arthritis - Surgical History Surgical History: Surgical History (Last Reviewed 05/29/18 @ 05:49 by Alicia Tan) History of total left knee replacement (TKR) - Family History Family History: Family History (Last Updated 05/29/18 @ 14:37 by Nicholas Moran MD) Other Family history normal - Tobacco History Second Hand Smoke Exposure: No Smoking Status: Never smoker - Alcohol History How Often Do You Have a Drink Containing Alcohol: Monthly or less - Substance Use History Substance History: No History of Abuse - Travel History Recent Travel in the [place] Within the Last 8 Weeks: No Recent Travel Out of the Country Within the Last 8 Weeks: No Medications and Allergies Active Medications: Active Medications Acetaminophen (Tylenol) 650 mg PO Q6H PRN PRN Reason: Pain Less Than 3 On Scale Hydrocodone Bitart/Acetaminophen ([place] 7.5/325) 1 tab PO Q4H PRN PRN Reason: PAIN SCALE 4 TO 6 MODERATE Hydrocodone Bitart/Acetaminophen ([place] 7.5/325) 2 tab PO Q6H PRN PRN Reason: PAIN SCALE 7 TO 10 SEVERE Al Hydrox/Mg Hydrox/Simethicone (Mag-Al Plus Susp Liq) 30 ml PO Q6H PRN PRN Reason: INDIGESTION Al Hydroxide/Mg Hydroxide (Milk Of Magnesia Liq) 30 ml PO BID PRN PRN Reason: Mild Constipation Amlodipine Besylate (Norvasc) 10 mg PO DAILY LANCE Aspirin (Aspirin Chew) 81 mg PO BID LACNE Bisacodyl (Dulcolax Supp) 10 mg RECTAL DAILY PRN PRN Reason: SEVERE CONSITIPATION Chlorhexidine Gluconate (Hibiclens 4% Topical) 1 applicatio TOPICAL ONCE LANCE Stop: 06/02/18 05:59 Sodium Chloride 80 ml/ (Bupivacaine Liposome 20 ml) 0 ml P-ARTICULR ONCE LANCE Stop: 05/29/18 21:00 Last Admin: 05/29/18 07:29 Dose: 100 bag Diphenhydramine HCl (Benadryl) 25 mg PO Q6H PRN PRN Reason: ITCHING Lactated Ringer's (Lr 1000 Ml Inj) 1,000 mls @ 30 mls/hr IV.CONT .Q24H ONE Stop: 05/30/18 05:44 Last Infusion: 05/29/18 08:59 Dose: Infused Sodium Chloride (Ns Inj) 500 mls @ 30 mls/hr IV.CONT .[id number] ONE Stop: 05/29/18 22:24 Last Admin: 05/29/18 06:05 Dose: Not Given Cefazolin Sodium/Dextrose (Ancef 2 Gm Premix Inj) 2 gm in 50 mls @ 100 mls/hr IV.SIG ONCE LANCE Stop: 05/29/18 21:00 Last Infusion: 05/29/18 07:21 Dose: Infused Tranexamic Acid 967 mg/ Sodium (Chloride) 109.67 mls @ 200 mls/hr IV.SIG ONCE LANCE Stop: 05/29/18 21:00 Last Infusion: 05/29/18 07:58 Dose: Infused Tranexamic Acid 967 mg/ Sodium (Chloride) 109.67 mls @ 200 mls/hr IV.SIG ONCE LANCE Stop: 05/29/18 21:00 Last Admin: 05/29/18 10:15 Dose: 200 mls/hr Cefazolin Sodium 1,000 mg/ (Sodium Chloride) 100 mls @ 200 mls/hr IV.SIG Q6H LANCE Stop: 05/30/18 01:29 Lactated Ringer's (Lr 1000 Ml Inj) 1,000 mls @ 80 mls/hr IV.CONT .[id number] [facility] Last Admin: 05/29/18 11:06 Dose: 80 mls/hr Ketorolac Tromethamine (Toradol Inj) 15 mg IV.PUSH Q6H LANCE Stop: 05/31/18 00:46 Lactulose (Lactulose Liq) 30 ml PO DAILY PRN PRN Reason: SEVERE CONSITIPATION Lisinopril (Prinivil) 10 mg PO DAILY [facility] Miscellaneous Information (Misc Nursing Information) 0 each OTHER UNSCH PRN PRN Reason: SEE LABEL COMMENTS Stop: 05/30/18 09:29 Morphine Sulfate (Morphine Inj) 2 mg IV.PUSH Q3H PRN PRN Reason: BREAKTHROUGH PAIN Ondansetron HCl (Zofran Odt) 4 mg PO Q6H PRN PRN Reason: NAUSEA OR VOMITING Senna/Docusate Sodium (Ruthann-Colace) 1 tab PO BID [facility] Sennosides (Senokot) 17.2 mg PO BID PRN PRN Reason: Moderate Constipation Sodium Chloride (Ns Flush) 2 ml IV.FLUSH BID LANCE Sodium Chloride (Ns Flush) 2 ml IV.FLUSH PRN PRN PRN Reason: FLUSH AFTER USING IV ACCESS Zolpidem Tartrate (Ambien) 5 mg PO HS PRN PRN Reason: INSOMNIA Allergies Allergy/AdvReac Type Severity Reaction Status Date / Time No Known Allergies Allergy Verified 05/17/18 10:01 Home Medications Medication Instructions Recorded Confirmed Type amlodipine 10 mg PO DAILY 05/17/18 05/29/18 History lisinopril 10 mg PO DAILY 05/17/18 05/29/18 History meloxicam 15 mg PO DAILY 05/17/18 05/29/18 History Physical Exam Vital signs: Vital Signs 05/29/18 05:45 05/29/18 06:11 05/29/18 06:18 Temperature 98.6 F Pulse Rate 77 68 Respiratory Rate Blood Pressure 131/64 Pulse Oximetry 99 99 05/29/18 07:45 05/29/18 08:00 05/29/18 09:30 Temperature 97.5 F L Pulse Rate 64 62 75 Respiratory Rate 16 15 15 Blood Pressure 102/56 L 107/55 L 120/64 Pulse Oximetry 100 100 99 05/29/18 09:45 05/29/18 10:00 05/29/18 10:15 Temperature Pulse Rate 72 72 75 Respiratory Rate 15 16 15 Blood Pressure 123/64 117/67 131/69 Pulse Oximetry 96 100 100 05/29/18 10:45 05/29/18 11:00 05/29/18 11:30 Temperature Pulse Rate 75 70 68 Respiratory Rate 16 15 15 Blood Pressure 130/63 119/57 L 116/57 L Pulse Oximetry 100 94 L 97 05/29/18 12:00 Temperature Pulse Rate 65 Respiratory Rate 17 Blood Pressure 115/57 L Pulse Oximetry 96 Intake & Output 05/28/18 05/29/18 05/29/18 18:59 06:59 18:59 Intake Total 2059.67 / 2058.67 Output Total 150 / 150 Balance 1909.67 / 1909.67 Weight 96.7 kg Intake: IV 1159.67 / 1159.67 LR 1000 mL Inj 1,000 ML @ 30 1000 / 1000 mls/hr IV.CONT .Q24H ONE Rx#: [id number] Cyklokapron Inj 967 MG In NS 109.67 / 109.67 Inj 100 ML @ 200 mls/hr IV.SIG ONCE LANCE Rx#:[id number] Ancef 2 GM Premix Inj 2 gm In 50 / 50 50 ml @ 100 mls/hr IV.SIG ONCE LANCE Rx#:[id number] Anesthesia Amount 900 / 900 Output: Estimated Blood Loss 150 / 150 Other: Weight On Admission 97.6 kg Narrative: GENERAL: Obesity, well-developed patient, in no apparent distress. CARDIOVASCULAR: Regular rate and rhythm without murmurs, gallops, or rubs. RESPIRATORY: Clear to auscultation. Breath sounds equal bilaterally. No wheezes , rales, or rhonchi. GASTROINTESTINAL: Abdomen soft, non-tender, nondistended. Normal active bowel sounds MUSCULOSKELETAL: Extremities without clubbing, cyanosis, right knee with orthotics in place. NEURO: Alert & Oriented x4 to person, place, time, situation. Moves all ext x4 Assessment and Plan - Plan 1. Severe Right knee OA status post Right total knee arthroplasty using [place] Triathlon prosthesis (uncemented) by Doctor Carroll Ruby. PT consult, sales office manager for discharge purposes and Pain management. 2. Hypertension to continue Home medicines. 3. obesity strongly recommended diet and exercise. Follow laboratory in am tomorrow. DVT prophylaxis as per Orthopedic surgery. Code Status: Full Code. Discussed Condition With: patient Discharge Planning: As per Attending physician.
[2018-05-29] MEDS: Ketorolac Inj 30 MG/ML (IVP) Vial IV.PUSH SCH ×2 (14:05→20:22)
[2018-05-29] MEDS: amLODIPine 10 MG Tablet PO SCH (18:26)
[2018-05-29] MEDS: Senna/Docusate Sodium 8.6/50 MG Tablet PO SCH ×2 (18:27→20:23)
[2018-05-29] MEDS: Lisinopril 10 MG Tablet PO SCH (18:27)
[2018-05-29] MEDS ORDERED: Zolpidem Tartrate 5 MG Tablet PO PRN (21:00)
[2018-05-30] MEDS: Ketorolac Inj 30 MG/ML (IVP) Vial IV.PUSH SCH ×2 (01:10→09:40)
[2018-05-30 05:05] LABS: Hematocrit 28.3 % (35.0-46.0); Hemoglobin 9.6 gm/dL (11.6-15.3)
[2018-05-30 05:53] LABS: Calcium 8.1 mg/dL (8.5-10.1); Carbon Dioxide 24.7 meq/L (21.0-32.0); Magnesium 1.8 mg/dL (1.5-2.5)
[2018-05-30 05:55] LABS: Potassium 4.7 meq/L (3.5-5.1)
--- NOTE | 2018-05-30 07:27 | P.PNOP ---
Subjective Interval history: Postop day #1 She is doing well. She has minimal complaints related to the knee. She has almost no pain. Physical therapy reports that the ambulation distance was 10 feet. The range of motion was -5 degrees of extension to 90 degrees of flexion. Physical Exam Vital signs: Vital Signs 05/29/18 07:45 05/29/18 08:00 05/29/18 09:30 Temperature 97.5 F L Pulse Rate 64 62 75 Respiratory Rate 16 15 15 Blood Pressure 102/56 L 107/55 L 120/64 Pulse Oximetry 100 100 99 05/29/18 09:45 05/29/18 10:00 05/29/18 10:15 Temperature Pulse Rate 72 72 75 Respiratory Rate 15 16 15 Blood Pressure 123/64 117/67 131/69 Pulse Oximetry 96 100 100 05/29/18 10:45 05/29/18 11:00 05/29/18 11:30 Temperature Pulse Rate 75 70 68 Respiratory Rate 16 15 15 Blood Pressure 130/63 119/57 L 116/57 L Pulse Oximetry 100 94 L 97 05/29/18 12:00 05/29/18 12:30 05/29/18 13:00 Temperature Pulse Rate 65 64 62 Respiratory Rate 17 15 16 Blood Pressure 115/57 L 112/58 L 108/56 L Pulse Oximetry 96 97 97 05/29/18 13:30 05/29/18 13:45 05/29/18 16:00 Temperature 96.9 F L 97.1 F L 97.2 F L Pulse Rate 65 70 72 Respiratory Rate 15 17 18 Blood Pressure 111/60 118/77 108/58 L Pulse Oximetry 96 96 97 05/29/18 19:57 05/29/18 23:20 05/30/18 03:27 Temperature 97.1 F L 97.3 F L 97.5 F L Pulse Rate 73 65 71 Respiratory Rate 18 17 18 Blood Pressure 134/60 100/55 L 115/56 L Pulse Oximetry 96 99 96 Intake & Output 05/29/18 05/30/18 05/30/18 18:59 06:59 18:59 Intake Total 2989.34 / 2989.34 2143 / 2143 Output Total 260 / 260 85 / 85 Balance 2729.34 / 2729.34 2057 / 2057 Weight 96.7 kg Intake: IV 1369.34 / 1369.34 1663 / 1663 LR 1000 mL Inj 1,000 ML @ 80 1000 / 1000 1463 / 1463 mls/hr IV.CONT .[id number] LANCE Rx# :[id number] Cyklokapron Inj 967 MG In NS 219.34 / 219.34 Inj 100 ML @ 200 mls/hr IV.SIG ONCE LANCE Rx#:[id number] Ancef 2 GM Premix Inj 2 gm In 50 / 50 50 ml @ 100 mls/hr IV.SIG ONCE LANCE Rx#:[id number] Ancef Inj 1,000 MG In NS Inj 100 / 100 200 / 200 100 ML @ 200 mls/hr IV.SIG Q6H LANCE Rx#:[id number] Oral 720 / 720 480 / 480 Anesthesia Amount 900 / 900 Output: Urine 0 / 0 Estimated Blood Loss 150 / 150 Wound Drainage 110 / 110 85 / 85 # 2 Right Lateral Knee Hemovac 110 / 110 85 / 85 Other: # Voids 1 3 Date of Last Bowel Movement 05/29/18 # Bowel Movements 0 Narrative: She is resting comfortably, supine in bed. The dressing is dry and intact. The neurovascular status is intact. Results - Labs CBC & Chem 7: 05/30/18 04:21 05/30/18 04:21 Laboratory Results - last 24 hr 05/30/18 05/30/18 04:21 04:21 Hgb 9.6 L Hct 28.3 L Sodium 137 Potassium 4.7 Chloride 106 Carbon Dioxide 24.7 Anion Gap 6 BUN 16 Creatinine 0.92 Estimated GFR 61 L Random Glucose 133 H Calcium 8.1 L Magnesium 1.8 - Imaging Impressions Knee X-Ray 05/29/18 06:43 CONCLUSION: Intact total knee arthroplasty for technique. - Procedures Right total knee arthroplasty using [place] Triathlon prosthesis (uncemented) on 05/29/2018. Assessment and Plan - Ortho Post Op Day # 1 - Problem List (1) Status post total right knee replacement not using cement Code(s): Z96.651 - Presence of right artificial knee joint Status: Acute Plan: Continue postop care and PT. - Assessment and Plan Condition: Good. Orthopedically stable. DVT prophylaxis: TEDs, aspirin, sequentials. Discharge plans: Home with home health care. An appointment was scheduled through the office. Prescriptions: [place] 7.5/325; Patient is having significant pain caused by a total knee replacement which will last more than 3 days. Trial of Tylenol has not helped. I believe that it is medically necessary to treat patients pain because it is affecting patients ability to participate in postoperative rehabilitation and perform activities of daily living in a comfortable and efficient manner.
--- NOTE | 2018-05-30 08:18 | P.DS ---
Date of admission: 05/29/18 05:14 Primary care physician: Bryan Smiley MD Attending physician on discharge: Carroll Ruby Anticipated date of discharge: 05/30/18 Brief History from admission: This 67-year-old woman has had long-standing pain in her right knee nonresponsive to conservative measures including anti-inflammatory agents, analgesics, activity modification and ambulatory aids. Physical findings showed genu varum, medial laxity, medial tenderness, palpable osteophytes. She had an antalgic gait. X-rays showed loss of articular cartilage to bone-on- bone in the medial compartment with osteophytes and subchondral sclerosis. DS: Diagnosis - Discharge Diagnosis (1) Primary osteoarthritis of right knee Status: Chronic Diagnosis: Principal (2) Status post total right knee replacement not using cement Status: Acute Diagnosis: Principal DS: Medications - Discharge Medications Prescriptions: hydrocodone-acetaminophen 1 tab PO Q4H PRN 7 Days #42 tab PRN Reason: Pain (Scale Score 7-10) DS: Summary Hospital Course: The patient was admitted as noted above. The above noted operative procedure was carried out that day. Preoperatively prophylactic antibiotics were administered Ancef according to protocol. These were continued postoperatively. The patient also received tranexamic acid to help with hemostasis according to protocol. In the postanesthesia care unit mechanical methods of DVT prophylaxis in the form of NOVA stockings and sequentials were initiated. Physical therapy was initiated on the day of surgery. On postoperative day #1 physical therapy continued. DVT prophylaxis with aspirin 81 mg was initiated at this time. The patient continued physical therapy throughout the hospitalization. The distance walked and range of motion improved throughout the hospitalization. The patient was discharged on postoperative day 1 with the disposition being to home with home health care. An appointment for follow-up was made prior to admission. - Time Spent with Patient Total time spent providing and/or coordinating discharge services: Less than 30 minutes - Quality: VTE Deep Vein Thrombosis/Pulmonary Embolism Present on Admission: No Exam Vital signs: Vital Signs 05/29/18 09:30 05/29/18 09:45 05/29/18 10:00 Temperature 97.5 F L Pulse Rate 75 72 72 Respiratory Rate 15 15 16 Blood Pressure 120/64 123/64 117/67 Pulse Oximetry 99 96 100 05/29/18 10:15 05/29/18 10:45 05/29/18 11:00 Temperature Pulse Rate 75 75 70 Respiratory Rate 15 16 15 Blood Pressure 131/69 130/63 119/57 L Pulse Oximetry 100 100 94 L 05/29/18 11:30 05/29/18 12:00 05/29/18 12:30 Temperature Pulse Rate 68 65 64 Respiratory Rate 15 17 15 Blood Pressure 116/57 L 115/57 L 112/58 L Pulse Oximetry 97 96 97 05/29/18 13:00 05/29/18 13:30 05/29/18 13:45 Temperature 96.9 F L 97.1 F L Pulse Rate 62 65 70 Respiratory Rate 16 15 17 Blood Pressure 108/56 L 111/60 118/77 Pulse Oximetry 97 96 96 05/29/18 16:00 05/29/18 19:57 05/29/18 23:20 Temperature 97.2 F L 97.1 F L 97.3 F L Pulse Rate 72 73 65 Respiratory Rate 18 18 17 Blood Pressure 108/58 L 134/60 100/55 L Pulse Oximetry 97 96 99 05/30/18 03:27 Temperature 97.5 F L Pulse Rate 71 Respiratory Rate 18 Blood Pressure 115/56 L Pulse Oximetry 96 Intake & Output 05/29/18 05/30/18 05/30/18 18:59 06:59 18:59 Intake Total 2989.34 / 2989.34 2143 / 2143 Output Total 260 / 260 85 / 85 Balance 2729.34 / 2729.34 2057 / 2057 Weight 96.7 kg Intake: IV 1369.34 / 1369.34 1663 / 1663 LR 1000 mL Inj 1,000 ML @ 80 1000 / 1000 1463 / 1463 mls/hr IV.CONT .[id number] LANCE Rx# :[id number] Cyklokapron Inj 967 MG In NS 219.34 / 219.34 Inj 100 ML @ 200 mls/hr IV.SIG ONCE LANCE Rx#:[id number] Ancef 2 GM Premix Inj 2 gm In 50 / 50 50 ml @ 100 mls/hr IV.SIG ONCE LANCE Rx#:[id number] Ancef Inj 1,000 MG In NS Inj 100 / 100 200 / 200 100 ML @ 200 mls/hr IV.SIG Q6H LANCE Rx#:[id number] Oral 720 / 720 480 / 480 Anesthesia Amount 900 / 900 Output: Urine 0 / 0 Estimated Blood Loss 150 / 150 Wound Drainage 110 / 110 85 / 85 # 2 Right Lateral Knee Hemovac 110 / 110 85 / 85 Other: # Voids 1 3 Date of Last Bowel Movement 05/29/18 # Bowel Movements 0 Narrative: She is resting comfortably, supine in bed. The dressing is dry and intact. The neurovascular status is intact. Results Procedures completed during hospitalization: Right total knee arthroplasty using [place] Triathlon prosthesis (uncemented) on 05/29/2018. Labs on day of discharge: Labs from last 24 hours 05/30/18 05/30/18 04:21 04:21 Hgb 9.6 L Hct 28.3 L Sodium 137 Potassium 4.7 Chloride 106 Carbon Dioxide 24.7 Anion Gap 6 BUN 16 Creatinine 0.92 Estimated GFR 61 L Random Glucose 133 H Calcium 8.1 L Magnesium 1.8 - Impressions ITS Impressions Knee X-Ray 05/29/18 06:43 CONCLUSION: Intact total knee arthroplasty for technique. Discharge Plan - Discharge Disposition Patient Disposition: /Home Health Service - Discharge Condition Condition: Stable - Discharge Order Discharge Orders: Discharge Order (Routine); Ordered 05/30/18 Ordered By: Carroll Ruby - Discharge Details Anticipated Discharge Date: 05/30/18 - Physicians Team Primary Care Provider: Bryan Smiley Attending Provider: Carroll Ruby Other Providers: Nicholas Moran MD - Rxs /Orders / Referrals /Forms Prescriptions: New aspirin 81 mg Tablet,Chewable 81 mg PO BID RF: 0 hydrocodone-acetaminophen 7.5-325 mg Tablet 1 tab PO Q4H PRN (Reason: Pain (Scale Score 7-10)) 7 Days Qty: 42 RF: 0 Continue amlodipine 10 mg Tablet 10 mg PO DAILY lisinopril 10 mg Tablet 10 mg PO DAILY meloxicam 15 mg Tablet 15 mg PO DAILY Referrals: Carroll Ruby MD [Physician] - See Instructions Bryan Smiley MD [Primary Care Provider] - See Instructions - Discharge Instructions Patient Printed Instructions: Knee Replacement (DC)
[2018-05-30 08:49] VITALS: RESP 16
[2018-05-30] MEDS: Lisinopril 10 MG Tablet PO SCH (09:40)
[2018-05-30] MEDS: amLODIPine 10 MG Tablet PO SCH (09:40)
[2018-05-30] MEDS: Senna/Docusate Sodium 8.6/50 MG Tablet PO SCH (09:40)
--- NOTE | 2018-05-30 11:34 | P.PN ---
Subjective Interval history: This is a pleasant 67 y/o Female with Hypertension,Severe Right knee OA who despite medical management continued to have worsening right knee pain affecting her daily living of activity underwent right total knee arthroplasty today 05/29/18. Stable her only complaint is knee pain post surgery. Seen in PACU. 05/30: Stable in her bedroom, already recommended by Orthopedic surgery for discharge, to Home with HHC, no nausea, vomit or diarrhea. Physical Exam Vital signs: Vital Signs 05/29/18 12:00 05/29/18 12:30 05/29/18 13:00 Temperature Pulse Rate 65 64 62 Respiratory Rate 17 15 16 Blood Pressure 115/57 L 112/58 L 108/56 L Pulse Oximetry 96 97 97 05/29/18 13:30 05/29/18 13:45 05/29/18 16:00 Temperature 96.9 F L 97.1 F L 97.2 F L Pulse Rate 65 70 72 Respiratory Rate 15 17 18 Blood Pressure 111/60 118/77 108/58 L Pulse Oximetry 96 96 97 05/29/18 19:57 05/29/18 23:20 05/30/18 03:27 Temperature 97.1 F L 97.3 F L 97.5 F L Pulse Rate 73 65 71 Respiratory Rate 18 17 18 Blood Pressure 134/60 100/55 L 115/56 L Pulse Oximetry 96 99 96 05/30/18 08:00 Temperature 98.2 F Pulse Rate 61 Respiratory Rate 16 Blood Pressure 110/55 L Pulse Oximetry 110 H Intake & Output 05/29/18 05/30/18 05/30/18 18:59 06:59 18:59 Intake Total 2989.34 / 2989.34 2143 / 2143 Output Total 260 / 260 85 / 85 Balance 2729.34 / 2729.34 8 / 2058 Weight 96.7 kg Intake: IV 1369.34 / 1369.34 1663 / 1663 LR 1000 mL Inj 1,000 ML @ 80 1000 / 1000 1463 / 1463 mls/hr IV.CONT .[id number] [facility] Rx# :[id number] Cyklokapron Inj 967 MG In NS 219.34 / 219.34 Inj 100 ML @ 200 mls/hr IV.SIG ONCE [facility] Rx#:[id number] Ancef 2 GM Premix Inj 2 gm In 50 / 50 50 ml @ 100 mls/hr IV.SIG ONCE LANCE Rx#:[id number] Ancef Inj 1,000 MG In NS Inj 100 / 100 200 / 200 100 ML @ 200 mls/hr IV.SIG Q6H LANCE Rx#:[id number] Oral 720 / 720 480 / 480 Anesthesia Amount 900 / 900 Output: Urine 0 / 0 Estimated Blood Loss 150 / 150 Wound Drainage 110 / 110 85 / 85 # 2 Right Lateral Knee Hemovac 110 / 110 85 / 85 Other: # Voids 1 3 Date of Last Bowel Movement 05/29/18 # Bowel Movements 0 Narrative: GENERAL: Obesity, well-developed patient, in no apparent distress. CARDIOVASCULAR: Regular rate and rhythm without murmurs, gallops, or rubs. RESPIRATORY: Clear to auscultation. Breath sounds equal bilaterally. No wheezes , rales, or rhonchi. GASTROINTESTINAL: Abdomen soft, non-tender, nondistended. Normal active bowel sounds MUSCULOSKELETAL: Extremities without clubbing, cyanosis, right knee with orthotics in place. NEURO: Alert & Oriented x4 to person, place, time, situation. Moves all ext x4 Results - Labs CBC & Chem 7: 05/30/18 04:21 05/30/18 04:21 Laboratory Results - last 24 hr 05/30/18 05/30/18 04:21 04:21 Hgb 9.6 L Hct 28.3 L Sodium 137 Potassium 4.7 Chloride 106 Carbon Dioxide 24.7 Anion Gap 6 BUN 16 Creatinine 0.92 Estimated GFR 61 L Random Glucose 133 H Calcium 8.1 L Magnesium 1.8 - Imaging Knee X-Ray 05/29/18 06:43 CONCLUSION: Intact total knee arthroplasty for technique. - Procedures Right total knee arthroplasty using [employer] Triathlon prosthesis (uncemented) on 05/29/2018. Assessment and Plan - Plan 1. Severe Right knee OA status post Right total knee arthroplasty using [employer] Triathlon prosthesis (uncemented) by Doctor Carroll Ruby. PT consult, receiving manager for discharge purposes and Pain management. as per Orthopedic surgery to go home today with C. 2. Hypertension to continue Home medicines. 3. obesity strongly recommended diet and exercise. DVT prophylaxis as per Orthopedic surgery. Code Status: Full code. Discussed Condition With: patient and Nurse. Discharge Planning: Hospitalist clear for discharge
[2018-05-30 12:18] VITALS: BP 126/60; PULSE 76; TEMP 97.7; O2SAT 100
== END 2018-05-30 15:16 | disposition home health service (06) ==
LOC: HSDI 05:14 → N06 13:43
PROVIDERS: ADMIT Orthopaedic Surgery; ATTEND Orthopaedic Surgery